=== PATIENT | female | born 1945 | race Caucasian/White ===

== ENCOUNTER 2018-06-13 18:05 | Emergency (ER) | payer MEDICARE, OTHER ==
[~2018-06-13] VITALS: Ht 167.6 cm; Wt 68.0 kg
[~2018-06-13 18:05] MED LIST: HYDSUL200 PO; Percocet 10-321 EACH PO; Zofran Odt4 MG SL
== END 2018-06-13 20:06 | disposition home or self-care (01) ==
LOC: ER 18:05
DX: S05.02XA Injury of conjunctiva and corneal abrasion without foreign body, left eye, initial encounter (principal); W22.8XXA Striking against or struck by other objects, initial encounter; Z79.899 Other long term (current) drug therapy; Z87.891 Personal history of nicotine dependence
CPT/HCPCS: 99283

== ENCOUNTER → 2019-08-18 | Outpatient (CLI) | payer MEDICARE, OTHER ==
[2019-08-18 16:18] LABS: Source, Urine Clean Catch
[2019-08-18 19:05] LABS: Bilirubin, Urine Neg (Neg); Blood, Urine Neg (Neg); Glucose Qualitative, Urine Neg (Neg); Ketones, Urine Neg (Neg); Leukocyte Esterase, Urine 1+ (Neg); Nitrite, Urine Neg (Neg); Protein, Urine Neg (Neg); Specific Gravity, Urine 1.015 (1.003-1.022); Urobilinogen, Urine NORM (Normal)
[2019-08-18 19:12] LABS: Appearance, Urine Clear (Clear); Color, Urine Yellow (P-Yellow)
[2019-08-18 19:14] LABS: Bacteria Few /hpf; Red Blood Cells, Urine Not Seen /hpf (0-2); Squamous Epithelial Cells Rare /hpf (Few); White Blood Cells, Urine 0-2 /hpf (0-5)
== END ==
LOC: LAB SHORT 14:30 → LAB 14:30
PROVIDERS: Obstetrics & Gynecology
DX: N81.4 Uterovaginal prolapse, unspecified (principal)
CPT/HCPCS: 81001; 87086

== ENCOUNTER → 2020-01-14 | Outpatient (CLI) | payer MEDICARE, OTHER ==
[2020-01-17 14:08] LABS: HPV 16 Negative (Negative); HPV 18 Negative (Negative); HPV OTHER HR TYPES Negative (Negative)
== END | disposition home or self-care (01) ==
LOC: LAB 15:44 → LAB SHORT 15:44
PROVIDERS: Obstetrics & Gynecology
DX: Z01.419 Encounter for gynecological examination (general) (routine) without abnormal findings (principal)
CPT/HCPCS: 87624; G0123

== ENCOUNTER → 2020-04-05 | Outpatient (CLI) | payer MEDICARE, OTHER ==
[~2020-04-05] MED LIST changes: +ACET325 PO; +ALENDRONATE SOD10 MG PO; +CYCL10 PO; +DOCU100 PO; +HYDR1TAB94 PO; +IBUP600 PO; +OXYC5 PO
[2020-04-05 19:30] LABS: BASOPHILS ABSOLUTE AUTO 0.08 K/mm3 (0.00-0.23); BASOPHILS PERCENT AUTO 1 % (0-2); EOSINOPHILS ABSOLUTE AUTO 0.08 K/mm3 (0.00-0.68); EOSINOPHILS PERCENT AUTO 1 % (0-6); Hemoglobin 13.7 g/dL (11.5-16.0); IMMATURE GRAN ABSOLUTE AUTO 0.01 K/mm3 (0.00-0.10); IMMATURE GRAN PERCENT AUTO 0 % (0-1); LYMPHOCYTES ABSOLUTE AUTO 1.81 K/mm3 (0.84-5.20); LYMPHOCYTES PERCENT AUTO 30 % (21-46); MONOCYTES ABSOLUTE AUTO 0.65 K/mm3 (0.16-1.47); MONOCYTES PERCENT AUTO 11 % (4-13); Mean Corpuscular HGB 27.7 pg (26.0-34.0); Mean Corpuscular HGB Conc 30.4 g/dL (31.5-36.5); Mean Corpuscular Volume 91 fL (80-100); Mean Platelet Volume 10.4 fL (9.1-12.4); NEUTROPHILS ABSOLUTE AUTO 3.32 K/mm3 (1.96-9.15); NEUTROPHILS PERCENT AUTO 56 % (41-73); Platelet Count 388 K/mm3 (150-400); RDW Coefficient Variation 14.1 % (11.7-14.2); RDW Standard Deviation 47.5 fL (35.1-46.3); Red Blood Cell Count 4.94 M/mm3 (3.80-5.20); White Blood Cell Count 5.95 K/mm3 (4.00-11.30)
== END | disposition home or self-care (01) ==
LOC: LAB 17:34 → LAB SHORT 17:34
PROVIDERS: Obstetrics & Gynecology
DX: Z01.812 Encounter for preprocedural laboratory examination (principal); Z01.818 Encounter for other preprocedural examination
CPT/HCPCS: 85025

== ENCOUNTER 2020-04-10 06:02 | Day surgery (SDC) | payer MEDICARE, OTHER ==
[~2020-04-10] VITALS: Ht 164 cm; Wt 62.4 kg
[~2020-04-10 06:02] MED LIST changes: -ACET325 PO; -CYCL10 PO; -DOCU100 PO; -HYDR1TAB94 PO; -IBUP600 PO; -OXYC5 PO
--- NOTE | 2020-04-10 07:12 | NUR ---
Ambulatory in Day Surgery History, Chart, Medications and Allergies reviewed before start of procedure.Patient confirms NPO status and agrees with scheduled surgery. Surgical site prepped with 2% Chlorhexidine cloth wipe.
[2020-04-10 13:41] LABS: Anion Gap 4 mmol/L (6-16); Blood Urea Nitrogen 14 mg/dL (8-24); Bun/Creatinine Ratio 25.9 (12.0-20.0); CO2, Blood 27 mmol/L (21-32); Calcium, Blood 9.3 mg/dL (8.5-10.1); Chloride, Blood 113 mmol/L (98-108); Creatinine, Blood 0.54 mg/dL (0.40-1.00); Glomerular Filtration Rate >60 (60-); Glucose, Blood 138 mg/dL (70-99); Potassium, Blood 4.7 mmol/L (3.5-5.5); Sodium, Blood 144 mmol/L (136-145)
--- NOTE | 2020-04-10 16:10 | NUR ---
PT AMBULATED TO RESTROOM TO VOID CHANGED DANNY PAD.
--- NOTE | 2020-04-10 16:28 | NUR ---
PT PASSED VOIDING TRIAL VOIDED 400 AND PVR WAS 79
--- NOTE | 2020-04-10 17:05 | NUR ---
SUMMARY NO ACUTE CHANGES SINCE ARRIVING TO UNIT FROM PACU. PT TOLERATING PO, PAIN CONTROLLED PER EMAR. HAS AMBULATED IN [place] AND PASSED VOIDING TRIAL. CHANGED DANNY PAD W/MODERATE AMOUNT VAGINAL BLEEDING NOTED. CALL LIGHT IN REACH.
--- NOTE | 2020-04-10 17:46 | NUR ---
CARE ASSUMED OF PT. PT IS ALERT AND ORIENTED SITTING IN HER BED. PT DENIES PAIN. SHE IS TOLERATING PO. PT REQUESTED BOWEL CARE.
--- NOTE | 2020-04-10 19:30 | NUR ---
REPORT GIVEN TO HOWARD RN. NO CHANGEDS TO REPORT SINCE CARE ASSUMED OF PT.
--- NOTE | 2020-04-11 06:42 | NUR ---
POD 1 S/P VAG HYSTER. PT VSS T/O NIGHT. PT REP PAIN MINIMAL, MGD W/TORADOL AND 1 OXYCODONE. VAGINAL BLEEDING APPEARS TO BE SLOWING DOWN, PT CHANGED DANNY PAD X2 THIS SHIFT W/SMALL AMT BLOOD NOTED. PT PRUDENCIO REG PO, NO N/V, IS VOIDING URINE W/O DIFFICULTY. PT UP W/SBA PRUDENCIO WELL. PLAN TO D/C HOME TODAY.
[2020-04-11] MEDS ORDERED: DOCU100 PO ×2 (07:16)
[2020-04-11] MEDS ORDERED: ACET325 PO ×2 (07:16)
[2020-04-11] MEDS ORDERED: OXYC5 PO ×2 (07:17)
[2020-04-11] MEDS ORDERED: IBUP600 PO ×2 (07:17)
--- NOTE | 2020-04-11 08:21 | NUR ---
A&O, EATING BREAKFAST, TOLERATING WELL, DENIES ANY NEED FOR PAIN MEDS AT THIS TIME, DC HOME AFTER BREAKFAST.
--- NOTE | 2020-04-11 10:39 | NUR ---
DC'D HOME, DC INSTRUCTIONS GIVEN, VERALIZED UNDERSTANDING, PT VOIDING WITHOUT DIFFICULTY, IV DC'D, CATH INTACT.
== END 2020-04-11 10:15 | disposition home or self-care (01) ==
LOC: ORSCMMR 06:02 → PRE IP 07:30 → EDSTATUS 07:30 → SURS 10:18 → ORSCMMR 04-11 10:15 → SURS 04-11 10:15
PROVIDERS: Obstetrics & Gynecology
PROC: 0UT97ZZ Resection of Uterus, Via Natural or Artificial Opening (ICD-10-PCS; principal; 2020-04-10 07:30)
PROC: 0JQC0ZZ Repair Pelvic Region Subcutaneous Tissue and Fascia, Open Approach (ICD-10-PCS; 2020-04-10 07:30)
PROC: 0UQF0ZZ Repair Cul-de-sac, Open Approach (ICD-10-PCS; 2020-04-10 07:30)
DX: N81.4 Uterovaginal prolapse, unspecified (principal); D25.0 Submucous leiomyoma of uterus; E83.52 Hypercalcemia; I25.10 Atherosclerotic heart disease of native coronary artery without angina pectoris; M81.0 Age-related osteoporosis without current pathological fracture; Z85.3 Personal history of malignant neoplasm of breast; Z79.83 Long term (current) use of bisphosphonates
CPT/HCPCS: 36415; 80048; 88307; A9270; J0171; J0690; J1100; J1170; J1885; J2250; J2370; J2405; J2704; J3010; J7120; Q9968

== ENCOUNTER 2020-06-28 13:56 | Emergency (ER) | payer MEDICARE, OTHER ==
[~2020-06-28] VITALS: Ht 165.1 cm; Wt 59.9 kg
[~2020-06-28 13:56] MED LIST changes: +ACET325 PO; +DOCU100 PO; +IBUP600 PO; +OXYC5 PO
[2020-06-28] MEDS ORDERED: CYCL10 PO (16:54)
[2020-06-28] MEDS ORDERED: HYDR1TAB94 PO (17:00)
== END 2020-06-28 17:38 | disposition home or self-care (01) ==
LOC: ER 13:56
DX: S62.616A Displaced fracture of proximal phalanx of right little finger, initial encounter for closed fracture (principal); M62.830 Muscle spasm of back; Z79.899 Other long term (current) drug therapy; Z87.891 Personal history of nicotine dependence; W55.29XA Other contact with cow, initial encounter
CPT/HCPCS: 71046; 72128; 73120; 99284-25; A9270

== ENCOUNTER → 2021-05-02 | Outpatient (CLI) | payer MEDICARE, OTHER ==
[~2021-05-02] MED LIST changes: +CYCL10 PO; +HYDR1TAB94 PO
[2021-05-03 09:57] LABS: Candida species (DNA Probe) Negative (NEGATIVE); G. vaginalis (DNA Probe) Negative (NEGATIVE); T. vaginalis (DNA Probe) Negative (NEGATIVE)
== END | disposition home or self-care (01) ==
LOC: LAB SHORT 18:07
PROVIDERS: Family Medicine
DX: N76.0 Acute vaginitis (principal)
CPT/HCPCS: 87480; 87510; 87660

== ENCOUNTER → 2021-05-07 | Outpatient (CLI) | payer MEDICARE, OTHER | END | disposition home or self-care (01) | LOC: LAB SHORT 10:43 | DX: N39.0 Urinary tract infection, site not specified (principal) | CPT/HCPCS: 87077; 87086; 87186 ==

== ENCOUNTER 2024-07-21 06:09 | Day surgery (SDC) | payer MEDICARE, OTHER ==
[~2024-07-21] VITALS: Ht 165.1 cm; Wt 64.6 kg
[2024-07-21] MEDS ORDERED: Lactated Ringer's 1,000 ML IV ONE ×2 (06:11→07:09)
[2024-07-21] MEDS ORDERED: VITAMIN B122500 MC1 PO (06:52)
[2024-07-21] MEDS ORDERED: VITAMIN D33000 UNIT PO (06:52)
[2024-07-21] MEDS ORDERED: propofoL 20 ML IV ONE (06:53)
[2024-07-21] MEDS ORDERED: OLIVE LEAF PO (06:53)
[2024-07-21] MEDS ORDERED: CALCIUM (06:53)
[2024-07-21] MEDS ORDERED: FentaNYL Citrate 50 MCG/ML 2 ML Injection ONE ×2 (06:54→09:24)
[2024-07-21] MEDS ORDERED: Dexamethasone Sod Phos 10 MG/ML 1ML VIAL ONE (06:54)
[2024-07-21] MEDS ORDERED: Rocuronium Bromide 10 MG/ML 5ML Injection IV ONE (06:54)
[2024-07-21] MEDS ORDERED: Sugammadex Sodium 200 MG/2ML SDV (100 MG/ML) ONE (06:54)
[2024-07-21] MEDS ORDERED: Ondansetron HCl 2 MG / ML 2ML Vial ONE ×2 (06:54→09:25)
[2024-07-21] MEDS ORDERED: Lidocaine 1%-Epineph 1:200000 30 ML SDV ONE (07:06)
--- NOTE | 2024-07-21 09:34 | NUR ---
07/21/24 0934 CURT CHOU PT HAVING NAUSEA. JAVIER CRONIN MEDICATED HER JUST PRIOR TO HER BREAK. COOL CLOTH TO THE BACK OF HER NECK. DENTURES WERE REMOVED BY PT AND PLACED IN CUP ON SIDE TABLE. PT REMAINES IN BED AT THIS TIME. RESUMING VITALS. WILL HOLD OFF ON TRANSFER UNTIL FEELING BETTER.
[2024-07-21 09:37] VITALS: BP 172/71
[2024-07-21] MEDS ORDERED: Metoclopramide HCl 5MG / ML 2ML Vial ONE (09:49)
[2024-07-21] MEDS ORDERED: OxyCODONE HCL 5 MG TAB ONE (10:20)
[2024-07-21] MEDS ORDERED: Scopolamine Hydrobromide Patch ONE (10:34)
== END 2024-07-21 10:50 | disposition home or self-care (01) ==
LOC: ORSCSDS 06:09
PROVIDERS: Otolaryngology
PROC: 0GTR0ZZ Resection of Parathyroid Gland, Open Approach (ICD-10-PCS; principal; 2024-07-21 07:30)
DX: E21.0 Primary hyperparathyroidism (principal); D35.1 Benign neoplasm of parathyroid gland; Z85.3 Personal history of malignant neoplasm of breast
CPT/HCPCS: 83970; 88305; 88331; A9270; J1100; J2405; J2704; J2765; J3010; J7120